=== PATIENT | female | born 1995 | race Two or more races ===

== ENCOUNTER 2018-05-11 01:08 | Emergency (ER) | payer OTHER, MEDICAID ==
[~2018-05-11] VITALS: Ht 162.6 cm; Wt 59.0 kg
[2018-05-11 01:16] VITALS: BP 106/64
--- NOTE | 2018-05-11 01:16 | NUR ---
ED Nurse Note: Pt was brought in ED by Ambulance from a Bar. c/o Possible ETOH abused according to the EMS report. Pt was awake , unable to follow comment. Vital signs stable at this time. Waing for orders.
--- NOTE | 2018-05-11 01:35 | NUR ---
ED Nurse Note: Blood collected and sent to Lab. Meds given as ordered.
[2018-05-11 02:06] LABS: BASOPHILS % (AUTO) 1.4 % (0.0-2.0); EOSINOPHILS % (AUTO) 1.2 % (0.0-3.0); HEMATOCRIT 41.7 % (37.0-47.0); HEMOGLOBIN 13.6 G/DL (12.0-16.0); LYMPHOCYTES % (AUTO) 27.8 % (20.0-45.0); MEAN CORPUSCULAR VOLUME 89 FL (80-99); MONOCYTES % (AUTO) 2.5 % (1.0-10.0); NEUTROPHILS % (AUTO) 67.2 % (45.0-75.0); PLATELET COUNT 221 K/UL (150-450); RED BLOOD COUNT 4.67 M/UL (4.20-5.40); RED CELL DISTRIBUTION WIDTH 12.4 % (11.6-14.8); WHITE BLOOD COUNT 6.5 K/UL (4.8-10.8)
[2018-05-11 02:17] LABS: ANION GAP 11 mmol/L (5-15); BLOOD UREA NITROGEN 15 mg/dL (7-18); CALCIUM 8.9 MG/DL (8.5-10.1); CARBON DIOXIDE 25 MMOL/L (21-32); CHLORIDE 106 MMOL/L (98-107); POTASSIUM 3.9 MMOL/L (3.5-5.1); SODIUM 142 MMOL/L (136-145)
[2018-05-11 02:21] LABS: ALANINE AMINOTRANSFERASE 24 U/L (12-78); ALBUMIN 4.1 G/DL (3.4-5.0); ALBUMIN/GLOBULIN RATIO 1.2 (1.0-2.7); ALKALINE PHOSPHATASE 74 U/L (46-116); ASPARTATE AMINO TRANSFERASE 23 U/L (15-37); BILIRUBIN,TOTAL 0.2 MG/DL (0.2-1.0)
--- NOTE | 2018-05-11 05:47 | Emergency Room Report ---
History of Present Illness General Chief Complaint: Alcohol Intoxication Source: EMS Present Illness HPI Patient brought via EMS after alcohol ingestion. There is no history of head trauma. Patient is unable to answer questions at this time. Vital signs are stable in the field. They report there was vomiting prior to the arrival. Allergies: Coded Allergies: No Known Allergies (Unverified , 05/11/18) Patient History Limited by: medical condition Past Medical History: see triage record Social History: Reports: alcohol use Social History Narrative Registered nurse Reviewed Nursing Documentation: PMH: Agreed; PSxH: Agreed Nursing Documentation-PMH Past Medical History: No Stated History Review of Systems All Other Systems: limited Physical Exam Vital Signs Date Time Temp Pulse Resp B/P (MAP) Pulse Ox O2 Delivery O2 Flow Rate FiO2 05/11/18 01:09 98.2 80 16 100/66 100 Room Air General Appearance: Stupor Head: normocephalic, atraumatic Eyes: bilateral eye PERRL, bilateral eye Scleral Injection ENT: moist mucus membranes - Gag present Neck: supple Respiratory: chest non-tender, lungs clear, normal breath sounds Cardiovascular #1: regular rate, rhythm Gastrointestinal: non tender, decreased bowel sounds Genitourinary: no CVA tenderness Neurologic: responsive, DTRs symmetric, sensory intact, nystagmus Psychiatric: other - Lethargic Skin: no rash, warm/dry Medical Decision Making Diagnostic Impression: Primary Impression: Acute alcoholic intoxication Qualified Codes: F10.929 - Alcohol use, unspecified with intoxication, unspecified ER Course Patient presents after alleged alcohol ingestion with lethargy and stupor. Differential includes alcohol intoxication, electrolyte imbalance, other toxic ingestion amongst others. There is no evidence of head trauma and CT is not indicated. Lungs are clear and she is protecting her airway. The patient will be treated with IV hydration and repeated evaluations. Labs remarkable for positive blood alcohol. CBC and CMP normal. In the morning the patient was alert with a nonfocal neurologic exam. She denies suicidal or homicidal ideation. She denies any other somatic complaints at this time. Abstinence versus moderation was discussed with the patient. Also she was advised to see her private physician soon. Patient significant other was present and willing to watch over her. She was stable for outpatient observation and treatment. Laboratory Tests Test 05/11/18 01:48 05/11/18 02:13 White Blood Count 6.5 K/UL (4.8-10.8) Red Blood Count 4.67 M/UL (4.20-5.40) Hemoglobin 13.6 G/DL (12.0-16.0) Hematocrit 41.7 % (37.0-47.0) Mean Corpuscular Volume 89 FL (80-99) Mean Corpuscular Hemoglobin 29.1 PG (27.0-31.0) Mean Corpuscular Hemoglobin Concent 32.6 G/DL (32.0-36.0) Red Cell Distribution Width 12.4 % (11.6-14.8) Platelet Count 221 K/UL (150-450) Mean Platelet Volume 9.0 FL (6.5-10.1) Neutrophils (%) (Auto) 67.2 % (45.0-75.0) Lymphocytes (%) (Auto) 27.8 % (20.0-45.0) Monocytes (%) (Auto) 2.5 % (1.0-10.0) Eosinophils (%) (Auto) 1.2 % (0.0-3.0) Basophils (%) (Auto) 1.4 % (0.0-2.0) Sodium Level 142 MMOL/L (136-145) Potassium Level 3.9 MMOL/L (3.5-5.1) Chloride Level 106 MMOL/L (98-107) Carbon Dioxide Level 25 MMOL/L (21-32) Anion Gap 11 mmol/L (5-15) Blood Urea Nitrogen 15 mg/dL (7-18) Creatinine 1.0 MG/DL (0.55-1.30) Estimate Glomerular Filtration Rate > 60 mL/min (>60) Glucose Level 122 MG/DL (74-106) H Calcium Level 8.9 MG/DL (8.5-10.1) Total Bilirubin 0.2 MG/DL (0.2-1.0) Aspartate Amino Transferase (AST) 23 U/L (15-37) Alanine Aminotransferase (ALT) 24 U/L (12-78) Alkaline Phosphatase 74 U/L (46-116) Total Protein 7.6 G/DL (6.4-8.2) Albumin 4.1 G/DL (3.4-5.0) Globulin 3.5 g/dL Albumin/Globulin Ratio 1.2 (1.0-2.7) Salicylates Level 0.8 ug/mL (2.8-20) L Acetaminophen Level < 2 MCG/ML (10-30) L Serum Alcohol 233 mg/dL Urine HCG, Qualitative Negative (NEGATIVE) Urine Opiates Screen Negative (NEGATIVE) Urine Barbiturates Screen Negative (NEGATIVE) Phencyclidine (PCP) Screen Negative (NEGATIVE) Urine Amphetamines Screen Negative (NEGATIVE) Urine Benzodiazepines Screen Negative (NEGATIVE) Urine Cocaine Screen Negative (NEGATIVE) Urine Marijuana (THC) Screen Negative (NEGATIVE) Last Vital Signs Date Time Temp Pulse Resp B/P (MAP) Pulse Ox O2 Delivery O2 Flow Rate FiO2 05/11/18 05:56 98.1 83 16 103/61 99 Room Air Status: improved Disposition: HOME, SELF-CARE Condition: Improved Scripts Unable to Obtain Active Prescriptions or Reported Meds Referrals: [facility],REFERRING (PCP) Gabriel Hanks MD May 11, 2018 05:47
[2018-05-11 05:56] VITALS: BP 103/61
--- NOTE | 2018-05-11 05:56 | NUR ---
ED Nurse Note: Pt has seen by Dr. Hanks. all orders carried out, Pt is ready for discharge, D/c instruction and prescription given to Pt and verbalized understanding. IV/ ID band removed. Pt is d/c from ED with steady gait and all her belongings. Accompanied by her family.
== END 2018-05-11 05:56 | disposition home or self-care (01) ==
LOC: EDBD 01:08 → EMR 01:28
DX: F10.129 Alcohol abuse with intoxication, unspecified (principal); R53.83 Other fatigue; R40.1 Stupor
CPT/HCPCS: 36415; 80053; 80307; 81025; 85025; 96360; 96361; 99284; G0480; 80329